=== PATIENT | male | born 1955 | race Caucasian/White ===

== ENCOUNTER → 2017-09-06 | Outpatient (REF) | payer OTHER | LOC: M SFHCPLAZ 17:30 | DX: L57.0 Actinic keratosis (principal) ==

== ENCOUNTER → 2017-11-15 | Outpatient (REF) | payer OTHER | LOC: M LAB REF 18:38 | DX: B07.9 Viral wart, unspecified (principal) ==

== ENCOUNTER → 2018-12-08 | Outpatient (REF) | payer OTHER | LOC: M SFHCPLAZ 14:43 | PROVIDERS: ATTEND Family Medicine | DX: R06.02 Shortness of breath (principal); Z13.220 Encounter for screening for lipoid disorders; Z13.1 Encounter for screening for diabetes mellitus; Z53.9 Procedure and treatment not carried out, unspecified reason ==

== ENCOUNTER → 2018-12-09 | Outpatient (CLI) | payer OTHER ==
--- NOTE | 2018-12-09 09:17 | REP ---
Chest two views HISTORY: Shortness of breath Comparison: 10/24/2015 The lungs are clear. The heart is normal in size. The pulmonary vasculature is normal in appearance. Degenerative change is present in the thoracic spine. Impression: No acute disease. Electronically Signed by Arden Crook MD 12/09/2018 09:08 A
[2018-12-09 09:33] LABS: BASO # 0.1 10^3/uL (0.0-0.2); BASO % 2.5 % (0.0-1.0); EOS # 0.2 10^3/uL (0.0-0.50); EOS % 4.2 % (0.0-3.0); HEMATOCRIT 36.7 % (42.0-52.0); HEMOGLOBIN 12.7 g/dl (13.5-17.5); LYMPH # 1.8 10^3/uL (1.5-4.5); LYMPH % 37.5 % (24.0-44.0); MEAN CORPUSCULAR HEMOGLOBIN 31.9 pg (27.0-33.0); MEAN CORPUSCULAR HGB CONC 34.6 g/dl (32.0-36.5); MEAN CORPUSCULAR VOLUME 92.2 fl (80.0-96.0); MONO # 0.5 10^3/uL (0.0-0.8); MONO % 11.3 % (0.0-5.0); NEUTROPHILS # 2.1 10^3/uL (1.8-7.7); NEUTROPHILS % 44.1 % (36.0-66.0); PLATELET COUNT, AUTOMATED 308 10^3/uL (150-450); RED BLOOD COUNT 3.98 10^6/uL (4.30-6.10); WHITE BLOOD COUNT 4.8 10^3/uL (4.0-10.0)
[2018-12-09 09:53] LABS: CALCIUM LEVEL 8.6 MG/DL (8.8-10.2); CHOLESTEROL RISK RATIO 4.514 (<5); CREATININE FOR GFR 1.4 MG/DL (0.70-1.30); GLOMERULAR FILTRATION RATE 54.3 (>49); PERCENT SATURATION 17.9 % (19.7-50.0); POTASSIUM SERUM 4.3 MEQ/L (3.5-5.1)
[2018-12-09 10:03] LABS: FOLATE 13.3 NG/ML
== END ==
LOC: M LAB 08:33
PROVIDERS: ATTEND Obstetrics & Gynecology
DX: Z13.220 Encounter for screening for lipoid disorders (principal); Z13.1 Encounter for screening for diabetes mellitus; R06.02 Shortness of breath

== ENCOUNTER → 2018-12-31 | Outpatient (CLI) | payer OTHER ==
--- NOTE | 2018-12-31 09:33 | PFTRPT ---
Height: 69.00 Inches Weight: 198.00 Lbs BSA: 2.06 Diagnosis: R06.02 DATE OF PROCEDURE: 12/31/2018 ORDERED BY: Dr. Kirsten Minor Spirometry: Pre and post bronchodilator study of excellent technical quality. Forced vital capacity reduced. FEV1 is in proportion. Obstructive index is, therefore, normal. Flow Volume Loop: Expiratory limb of the flow volume loop does suggest some degree of flow rate limitation. Favorable bronchodilator response is identified. Lung Volumes: Total lung capacity normal. Residual volume suggests air trapping. Diffusing Capacity: Diffusing capacity is reduced and does not correct for alveolar volume. Hemoglobin: No hemoglobin available for correction. Airway Mechanics: Airway resistance and conductance are normal. IMPRESSION: Reversible obstructive ventilatory defect with air trapping and diffusing capacity impairment. Please correlate clinically. MTDD
== END ==
LOC: M CARPUL 08:57
PROVIDERS: ATTEND Obstetrics & Gynecology
DX: J98.4 Other disorders of lung (principal); R06.02 Shortness of breath

== ENCOUNTER → 2019-03-17 | Outpatient (CLI) | payer MEDICARE, OTHER, SELFPAY ==
[2019-03-17 09:16] LABS: HEMATOCRIT 35.9 % (42.0-52.0); HEMOGLOBIN 12.3 g/dl (13.5-17.5); MEAN CORPUSCULAR HEMOGLOBIN 31.6 pg (27.0-33.0); MEAN CORPUSCULAR HGB CONC 34.3 g/dl (32.0-36.5); MEAN CORPUSCULAR VOLUME 92.3 fl (80.0-96.0); PLATELET COUNT, AUTOMATED 271 10^3/uL (150-450); RED BLOOD COUNT 3.89 10^6/uL (4.30-6.10); WHITE BLOOD COUNT 4.7 10^3/uL (4.0-10.0)
== END ==
LOC: M LAB 08:19
PROVIDERS: ATTEND Obstetrics & Gynecology
DX: D50.8 Other iron deficiency anemias (principal)

== ENCOUNTER → 2019-03-26 | Outpatient (CLI) | payer MEDICARE ==
--- NOTE | 2019-03-26 09:54 | REP ---
ULTRASOUND OF THE ABDOMINAL AORTA: Real-time sonographic evaluation of the abdominal aorta performed. There is no sonographic evidence of abdominal aortic aneurysm. Proximally, abdominal aorta measures 2.6 cm in maximum AP dimension, mid aspect 2.0 cm and distally 2.2 cm. Common iliac arteries are normal in caliber both measuring 9 mm in diameter. IMPRESSION: No sonographic evidence of abdominal aortic aneurysm. Electronically Signed by Julio La MD 03/26/2019 11:23 A
== END ==
LOC: M RAD 07:57
PROVIDERS: ATTEND Student in an Organized Health Care Education/Training Program
DX: Z13.6 Encounter for screening for cardiovascular disorders (principal)

== ENCOUNTER → 2019-04-16 | Outpatient (CLI) | payer MEDICARE ==
--- NOTE | 2019-04-16 09:45 | REP ---
Low-dose lung screening CT of the chest: The study is performed without IV contrast. The images are presented at lung windowing only. Comparison is the chest CT dated 01/24/2014. There is a minor apical pleural scarring, unchanged. There are no lung nodules or masses. There are no infiltrates or pleural effusions. The lung lopez are unchanged from the prior study. Impression: Category one low-dose lung screening CT of the chest. The probability of malignancy is less than 1%. Depending on risk factors consider annual follow-up low-dose lung screening CT of the chest. Electronically Signed by Julio Patel MD 04/16/2019 09:35 A
== END ==
LOC: M RAD 08:07
PROVIDERS: ATTEND Student in an Organized Health Care Education/Training Program
DX: Z12.2 Encounter for screening for malignant neoplasm of respiratory organs (principal); Z87.891 Personal history of nicotine dependence

== ENCOUNTER → 2019-05-18 | Outpatient (REF) | payer MEDICARE | LOC: M LAB REF 18:04 | PROVIDERS: ATTEND Family Medicine | DX: L57.0 Actinic keratosis (principal); D04.9 Carcinoma in situ of skin, unspecified ==

== ENCOUNTER → 2020-06-20 | Outpatient (CLI) | payer SELFPAY | LOC: M LABSMTC 09:38 | PROVIDERS: ATTEND Pediatrics | DX: Z20.828 Contact with and (suspected) exposure to other viral communicable diseases (principal) ==

== ENCOUNTER → 2020-08-11 | Outpatient (REF) | payer MEDICARE | LOC: M LAB REF 13:40 | PROVIDERS: ATTEND Family Medicine | DX: D23.5 Other benign neoplasm of skin of trunk (principal) ==

== ENCOUNTER → 2020-08-12 | Outpatient (CLI) | payer MEDICARE ==
--- NOTE | 2020-08-12 13:39 | REP ---
INDICATION: LUNG SCREENING. COMPARISON: 04/16/2019. TECHNIQUE: Low dose screening CT chest performed without the use of intravenous contrast. FINDINGS: Lungs: Clear, no infiltrate or nodule. There are mild stable scattered interstitial fibrotic changes bilaterally. Heart: Not enlarged. Thoracic aorta: No aneurysm. Visualized osseous structures: There are degenerative changes of the thoracic spine. IMPRESSION: Category 1 negative low dose noncontrast CT chest. Follow-up exam recommended in 1 year. <Electronically signed by Julio La > 08/12/20 [id number]
== END ==
LOC: M RAD 11:13
PROVIDERS: ATTEND Student in an Organized Health Care Education/Training Program
DX: Z12.2 Encounter for screening for malignant neoplasm of respiratory organs (principal); Z87.891 Personal history of nicotine dependence; M51.34 Other intervertebral disc degeneration, thoracic region; J84.10 Pulmonary fibrosis, unspecified

== ENCOUNTER → 2020-10-11 | Outpatient (CLI) | payer MEDICARE ==
[~2020-10-11] MED LIST: ISOVUE-300 61% 50ML VIAL As Ordered ONE; ISOVUE-M 300 61% 15ML VIAL As Ordered ONE; PROHANCE 279.3MG/ML 5ML VIAL As Ordered ONE
--- NOTE | 2020-10-11 12:16 | REP ---
INDICATION: IMPINGEMENT SYNDROME OF LEFT SHOULDER. COMPARISON: Radiographs 02/29/2020. TECHNIQUE: Following arthrogram procedure axial CT images are performed with sagittal and coronal oblique reconstruction images. FINDINGS: There is a full-thickness partial tear of the anterior aspect of the supraspinatus tendon, with injected contrast extending into the subacromial/subdeltoid bursae. No other definite rotator cuff tendon tear is seen. There are moderate hypertrophic degenerative changes of the acromioclavicular joint with a type 2 acromion. Biceps tendon is contiguous within the bicipital groove. There is no evidence of Hill-Sachs deformity. There is no definite tear at the biceps labral complex. There is no definite labral tear. There is no fracture or dislocation. There is mild chondromalacia at the glenohumeral joint with no focal defect. There is a 1.5 cm hypodense nodule in the left lobe of the thyroid. IMPRESSION: Full-thickness partial tear anterior supraspinatus tendon. Moderate hypertrophic degenerative changes acromioclavicular joint with a type 2 acromion. No evidence of labral tear. Mild chondromalacia glenohumeral joint. Nodule left lobe of thyroid 1.5 cm in diameter. Recommend thyroid ultrasound to further evaluate. <Electronically signed by Julio La > 10/11/20 [id number]
--- NOTE | 2020-10-11 18:13 | REP ---
INDICATION: IMPINGEMENT SYNDROME OF LEFT SHOULDER COMPARISON: None. TECHNIQUE: The procedure was performed under the direct supervision of Dr. La. The benefits and risks including but not limited to pain, infection, bleeding and anaphylaxis were explained to the patient and informed consent was obtained. The left glenohumeral joint space was localized using fluoroscopic guidance. The skin was prepped and draped in a sterile fashion. 1% lidocaine was used as a local anesthetic. Using fluoroscopic guidance a 22 gauge spinal needle was inserted and advanced into the joint. 11 cc of Isovue-[id number] was injected. The needle was removed and the patient was taken to CT scan for postprocedural imaging. The patient tolerated the procedure well and there were no immediate complications. Less than 6 seconds of fluoro time was utilized for this procedure. FINDINGS: None IMPRESSION: Fluoro guidance for left shoulder CT arthrogram injection. <Electronically signed by Norman Ulloa > 10/11/20 [id number] <Electronically signed by Julio La > 10/11/20 [id number]
== END ==
LOC: M RADPRO 08:42
PROVIDERS: ATTEND Orthopaedic Surgery
DX: M75.112 Incomplete rotator cuff tear or rupture of left shoulder, not specified as traumatic (principal); M94.212 Chondromalacia, left shoulder; E04.1 Nontoxic single thyroid nodule; M75.42 Impingement syndrome of left shoulder
CPT/HCPCS: 23350; 73201; 77002; Q9967

== ENCOUNTER → 2020-11-21 | Outpatient (REF) | payer MEDICARE ==
[2020-11-21 13:16] LABS: HEMOGLOBIN 12.6 g/dl (13.5-17.5); MEAN CORPUSCULAR HEMOGLOBIN 31.2 pg (27.0-33.0); MEAN CORPUSCULAR HGB CONC 34.1 g/dl (32.0-36.5); MEAN CORPUSCULAR VOLUME 91.6 fl (80.0-96.0); PLATELET COUNT, AUTOMATED 294 10^3/uL (150-450); RED BLOOD COUNT 4.04 10^6/uL (4.30-6.10); WHITE BLOOD COUNT 5.1 10^3/uL (4.0-10.0)
[2020-11-21 14:48] LABS: ALBUMIN 3.7 GM/DL (3.2-5.2); BILIRUBIN,TOTAL 0.5 MG/DL (0.2-1.0); CALCIUM LEVEL 8.7 MG/DL (8.8-10.2); CREATININE FOR GFR 1.28 MG/DL (0.70-1.30); FREE T4 0.85 NG/DL (0.76-1.46); GLOMERULAR FILTRATION RATE 59.9 (>49); POTASSIUM SERUM 4.4 MEQ/L (3.5-5.1); THYROID STIMULATING HORMONE 3.41 uIU/ML (0.358-3.740); TOTAL PROTEIN 6.9 GM/DL (6.4-8.2)
[2020-11-21 18:35] LABS: HEMOGLOBIN A1c 5.5 %
[2020-11-22 18:11] LABS: PSA TOTAL 0.9 ng/mL (0.0-4.0)
== END ==
LOC: M SFHCPLAZ 09:34
PROVIDERS: ATTEND Family Medicine
DX: E04.1 Nontoxic single thyroid nodule (principal); Z13.1 Encounter for screening for diabetes mellitus; Z12.5 Encounter for screening for malignant neoplasm of prostate; Z12.2 Encounter for screening for malignant neoplasm of respiratory organs; R97.20 Elevated prostate specific antigen [PSA]

== ENCOUNTER → 2020-12-05 | Outpatient (REF) | payer MEDICARE | LOC: M LAB REF 17:22 | PROVIDERS: ATTEND Internal Medicine Endocrinology, Diabetes & Metabolism | DX: E04.1 Nontoxic single thyroid nodule (principal) ==

== ENCOUNTER → 2021-01-31 | Outpatient (CLI) | payer MEDICARE ==
--- NOTE | 2021-01-31 10:34 | PFTRPT ---
Height: 69.00 Inches Weight: 205.00 Lbs BSA: 2.09 Diagnosis: J43.1 DATE: 01/31/2021 ORDERED BY: LIZBET Benton Pre and post bronchodilator studies have excellent technical quality. Forced vital capacity is mildly reduced. FEV1 is in proportion. Obstructive index is therefore normal. Expiratory limit of the flow-volume loop does suggest some nonspecific limitation. Slow vital capacity generally in proportion. Diffusing capacity although reduced is appropriate for alveolar volume. Hemoglobin is acceptable at 15.1. Airway resistance and conductance are normal. IMPRESSION: Nonspecific flow rate limitation without significant bronchodilator response. Mild reduction in the absolute diffusing capacity. Please correlate clinically. MTDD
== END ==
LOC: M CARPUL 09:46
PROVIDERS: ATTEND Physician Assistant
DX: J43.1 Panlobular emphysema (principal)

== ENCOUNTER → 2021-03-09 | Outpatient (CLI) | payer MEDICARE ==
[~2021-03-09] MED LIST changes: -ISOVUE-300 61% 50ML VIAL As Ordered ONE; -ISOVUE-M 300 61% 15ML VIAL As Ordered ONE; +METHACHOLINE KIT (J7674) INH ONE; -PROHANCE 279.3MG/ML 5ML VIAL As Ordered ONE
== END ==
LOC: M CARPUL 07:56
PROVIDERS: ATTEND Physician Assistant
DX: R06.00 Dyspnea, unspecified (principal)

== ENCOUNTER 2021-07-07 15:05 | Emergency (ER) | payer MEDICARE ==
[~2021-07-07] VITALS: Ht 175.3 cm; Wt 98.3 kg
[2021-07-07 15:05] VITALS: BP 150/77
[2021-07-07] MEDS ORDERED: ALKA SELTZER COLD (15:11)
[2021-07-07] MEDS ORDERED: AMOX500C PO (16:18)
== END 2021-07-07 16:41 | disposition home or self-care (01) ==
LOC: M ED 15:05
DX: H66.91 Otitis media, unspecified, right ear (principal); J44.9 Chronic obstructive pulmonary disease, unspecified; Z87.891 Personal history of nicotine dependence

== ENCOUNTER → 2021-08-08 | Outpatient (REF) | payer MEDICARE ==
[~2021-08-08] MED LIST changes: +ALKA SELTZER COLD; +AMOX500C PO; -METHACHOLINE KIT (J7674) INH ONE
== END ==
LOC: M SFHCPLAZ 09:04
PROVIDERS: ATTEND Family Medicine
DX: E04.1 Nontoxic single thyroid nodule (principal); Z13.220 Encounter for screening for lipoid disorders; Z12.5 Encounter for screening for malignant neoplasm of prostate; Z13.1 Encounter for screening for diabetes mellitus

== ENCOUNTER → 2021-09-25 | Outpatient (CLI) | payer MEDICARE ==
[2021-09-25 14:06] LABS: CHOLESTEROL RISK RATIO 4.256 (<5); FREE T4 0.88 NG/DL (0.76-1.46); THYROID STIMULATING HORMONE 3.26 uIU/ML (0.358-3.740)
[2021-09-25 14:14] LABS: HEMOGLOBIN A1c 5.5 %
== END ==
LOC: M PLALAB 09:43
PROVIDERS: ATTEND Family Medicine
DX: Z12.5 Encounter for screening for malignant neoplasm of prostate (principal); Z13.220 Encounter for screening for lipoid disorders; E04.1 Nontoxic single thyroid nodule; Z13.1 Encounter for screening for diabetes mellitus; Z79.899 Other long term (current) drug therapy
CPT/HCPCS: 36415; 80061; 83036; 84439; 84443; G0103

== ENCOUNTER → 2022-11-14 | Outpatient (REF) | payer MEDICARE | LOC: M SFHCPLAZ 12:45 | PROVIDERS: ATTEND Physician Assistant | DX: R52 Pain, unspecified (principal); J02.9 Acute pharyngitis, unspecified ==

== ENCOUNTER → 2023-02-18 | Outpatient (CLI) | payer MEDICARE ==
[2023-02-18 11:16] LABS: CALCIUM LEVEL 8.5 MG/DL (8.3-10.6); CHOLESTEROL RISK RATIO 3.34 (<5); CREATININE FOR GFR 1.4 MG/DL (0.70-1.30); GLOMERULAR FILTRATION RATE 53.5 (>49); HDL CHOLESTEROL 42.8 MG/DL (>40); LDL CHOLESTEROL 89.2 MG/DL (<100); NON-HDL-C 100.2 MG/DL; POTASSIUM SERUM 4.5 MMOL/L (3.5-5.1)
[2023-02-18 11:43] LABS: HEMOGLOBIN A1c 5.5 % (4.0-6.0)
== END ==
LOC: M PLALAB 08:28
PROVIDERS: ATTEND Student in an Organized Health Care Education/Training Program
DX: Z13.220 Encounter for screening for lipoid disorders (principal); Z13.1 Encounter for screening for diabetes mellitus; Z79.899 Other long term (current) drug therapy

== ENCOUNTER → 2023-09-17 | Outpatient (CLI) | payer MEDICARE ==
[2023-09-17 15:48] LABS: CALCIUM LEVEL 8.6 MG/DL (8.3-10.6); CREATININE FOR GFR 2.07 MG/DL (0.70-1.30); GLOMERULAR FILTRATION RATE 34.1 (>49); POTASSIUM SERUM 4.6 MMOL/L (3.5-5.1)
== END ==
LOC: M PLALAB 12:48
PROVIDERS: ATTEND Student in an Organized Health Care Education/Training Program
DX: N18.31 Chronic kidney disease, stage 3a (principal)

== ENCOUNTER → 2023-09-20 | Outpatient (REF) | payer MEDICARE ==
[2023-09-20 13:46] LABS: APPEARANCE, URINE HAZY (CLEAR); BACTERIA, URINE AUTO NEGATIVE (NEGATIVE); BILIRUBIN, URINE AUTO NEGATIVE (NEGATIVE); BLOOD, URINE BLOOD NEGATIVE (NEGATIVE); COLOR, URINE YELLOW (YELLOW); GLUCOSE, URINE (UA) AUTO NEGATIVE (NEGATIVE); KETONE, URINE AUTO NEGATIVE (NEGATIVE); LEUKOCYTE ESTERASE, URINE AUTO NEGATIVE (NEGATIVE); MUCUS, URINE SMALL (NEGATIVE); NITRITE, URINE AUTO NEGATIVE (NEGATIVE); PROTEIN, URINE AUTO NEGATIVE (NEGATIVE); RBC, URINE AUTO 0 /HPF (0-3); SPECIFIC GRAVITY URINE AUTO 1.017 (1.002-1.035); SQUAMOUS EPITHELIAL CELL UR AU 0 /HPF (0-6); UROBILINOGEN, URINE AUTO 0.2 mg/dL (0.0-2.0); WBC, URINE AUTO 1 /HPF (0-3)
== END ==
LOC: M SFHCPLAZ 12:53
PROVIDERS: ATTEND Student in an Organized Health Care Education/Training Program
DX: N17.9 Acute kidney failure, unspecified (principal); N18.31 Chronic kidney disease, stage 3a; Z79.899 Other long term (current) drug therapy

== ENCOUNTER → 2023-10-02 | Outpatient (CLI) | payer MEDICARE ==
[2023-10-02 16:16] LABS: BLOOD UREA NITROGEN 22 MG/DL (9-23); CALCIUM LEVEL 7.9 MG/DL (8.3-10.6); CARBON DIOXIDE LEVEL 27 MMOL/L (20-31); CHLORIDE LEVEL 108 MMOL/L (98-107); CREATININE FOR GFR 1.26 MG/DL (0.70-1.30); GLOMERULAR FILTRATION RATE > 60.0 (>49); GLUCOSE, FASTING 113 MG/DL (74-106); POTASSIUM SERUM 4.2 MMOL/L (3.5-5.1); SODIUM LEVEL 138 MMOL/L (136-145)
== END ==
LOC: M PLALAB 13:38
PROVIDERS: ATTEND Student in an Organized Health Care Education/Training Program
DX: N18.31 Chronic kidney disease, stage 3a (principal)

== ENCOUNTER → 2023-10-02 | Outpatient (REF) | payer MEDICARE | LOC: M SFHCPLAZ 12:52 | PROVIDERS: ATTEND Student in an Organized Health Care Education/Training Program | DX: N18.31 Chronic kidney disease, stage 3a (principal) ==

== ENCOUNTER → 2023-10-08 | Outpatient (CLI) | payer MEDICARE | LOC: M RAD 14:34 | PROVIDERS: ATTEND Internal Medicine Hematology | DX: N17.9 Acute kidney failure, unspecified (principal); N40.0 Benign prostatic hyperplasia without lower urinary tract symptoms ==

== ENCOUNTER → 2023-10-30 | Outpatient (CLI) | payer MEDICARE | LOC: M RAD 06:37 | PROVIDERS: ATTEND Student in an Organized Health Care Education/Training Program | DX: Z12.2 Encounter for screening for malignant neoplasm of respiratory organs (principal); F17.211 Nicotine dependence, cigarettes, in remission ==

== ENCOUNTER → 2023-11-06 | Outpatient (REF) | payer MEDICARE | LOC: M SFHCPLAZ 09:41 | PROVIDERS: ATTEND Student in an Organized Health Care Education/Training Program | DX: J02.0 Streptococcal pharyngitis (principal) ==

== ENCOUNTER → 2023-11-06 | Outpatient (CLI) | payer MEDICARE ==
[2023-11-06 13:44] LABS: BASO # 0.1 10^3/uL (0.0-0.2); BASO % 1.3 % (0.0-1.0); EOS % 0.2 % (0.0-3.0); HEMATOCRIT 35.9 % (42.0-52.0); HEMOGLOBIN 11.9 g/dl (13.5-17.5); LYMPH # 0.9 10^3/uL (1.5-5.0); LYMPH % 16.3 % (24.0-44.0); MEAN CORPUSCULAR HEMOGLOBIN 30.9 pg (27.0-33.0); MEAN CORPUSCULAR HGB CONC 33.1 g/dl (32.0-36.5); MEAN CORPUSCULAR VOLUME 93.2 fl (80.0-96.0); MONO # 0.9 10^3/uL (0.0-0.8); MONO % 16.3 % (2.0-8.0); NEUTROPHILS # 3.4 10^3/uL (1.5-8.5); NEUTROPHILS % 65.3 % (36.0-66.0); PLATELET COUNT, AUTOMATED 235 10^3/uL (150-450); RED BLOOD COUNT 3.85 10^6/uL (4.30-6.10); WHITE BLOOD COUNT 5.3 10^3/uL (4.0-10.0)
[2023-11-06 14:11] LABS: TOTAL 25(OH) VITAMIN D 31.4 NG/ML (20.0-100.0)
[2023-11-06 14:12] LABS: ALBUMIN 3.4 G/DL (3.2-5.2); ALKALINE PHOSPHATASE 86 U/L (46-116); ALT/SGPT 40 U/L (7.0-40); AST/SGOT 32 U/L (<34); BILIRUBIN,TOTAL 0.7 MG/DL (0.3-1.2); BLOOD UREA NITROGEN 26 MG/DL (9-23); CALCIUM LEVEL 8.4 MG/DL (8.3-10.6); CARBON DIOXIDE LEVEL 28 MMOL/L (20-31); CHLORIDE LEVEL 105 MMOL/L (98-107); CREATININE FOR GFR 1.55 MG/DL (0.70-1.30); GLOMERULAR FILTRATION RATE 47.6 (>49); GLUCOSE, FASTING 106 MG/DL (74-106); POTASSIUM SERUM 4.2 MMOL/L (3.5-5.1); SODIUM LEVEL 139 MMOL/L (136-145)
[2023-11-06 14:13] LABS: FOLATE > 24.0 NG/ML (>5.4); VITAMIN B12 LEVEL 416 PG/ML (211-911)
== END ==
LOC: M PLALAB 09:35
PROVIDERS: ATTEND Student in an Organized Health Care Education/Training Program
DX: J06.9 Acute upper respiratory infection, unspecified (principal); R53.82 Chronic fatigue, unspecified; N18.31 Chronic kidney disease, stage 3a

== ENCOUNTER → 2023-12-18 | Outpatient (CLI) | payer MEDICARE ==
[2023-12-18 14:39] LABS: PERCENT SATURATION 17.5 % (19.7-50.0)
[2023-12-18 14:40] LABS: ALBUMIN 3.5 G/DL (3.2-5.2); BILIRUBIN,TOTAL 0.5 MG/DL (0.3-1.2); CALCIUM LEVEL 8.9 MG/DL (8.3-10.6); CREATININE FOR GFR 1.29 MG/DL (0.70-1.30); GLOMERULAR FILTRATION RATE 58.8 (>49); TOTAL PROTEIN 6.5 G/DL (5.7-8.2)
== END ==
LOC: M PLALAB 08:06
PROVIDERS: ATTEND Student in an Organized Health Care Education/Training Program
DX: D64.9 Anemia, unspecified (principal); M19.041 Primary osteoarthritis, right hand; M19.042 Primary osteoarthritis, left hand; M18.31 Unilateral post-traumatic osteoarthritis of first carpometacarpal joint, right hand; Z12.11 Encounter for screening for malignant neoplasm of colon

== ENCOUNTER → 2024-01-21 | Outpatient (REF) | payer MEDICARE | LOC: M SFHCPLAZ 12:50 | PROVIDERS: ATTEND Student in an Organized Health Care Education/Training Program | DX: J06.9 Acute upper respiratory infection, unspecified (principal) ==

== ENCOUNTER → 2024-03-02 | Outpatient (CLI) | payer MEDICARE ==
[2024-03-02 10:55] LABS: URIC ACID 4.3 MG/DL (3.7-9.2)
[2024-03-02 10:57] LABS: C REACTIVE PROTEIN QUANTITATIV < 0.40 MG/DL (<1.0)
[2024-03-02 10:59] LABS: CHOLESTEROL LEVEL 146 MG/DL (<200); CHOLESTEROL RISK RATIO 3.65 (<5); LDL CHOLESTEROL 92.4 MG/DL (<100); PSA SCREENING 0.98 NG/ML (< 4.00); TRIGLYCERIDES LEVEL 68 MG/DL (<150)
[2024-03-02 11:01] LABS: FREE T4 0.89 NG/DL (0.89-1.76)
[2024-03-02 11:04] LABS: HEMOGLOBIN A1c 5.3 % (4.0-6.0)
== END ==
LOC: M PLALAB 07:53
PROVIDERS: ATTEND Student in an Organized Health Care Education/Training Program
DX: E78.5 Hyperlipidemia, unspecified (principal); Z12.5 Encounter for screening for malignant neoplasm of prostate; Z13.1 Encounter for screening for diabetes mellitus; R53.82 Chronic fatigue, unspecified; M19.041 Primary osteoarthritis, right hand
CPT/HCPCS: 36415; 80061; 83036; 84439; 84443; 84550; 85652; 86140; G0103

== ENCOUNTER → 2024-03-30 | Outpatient (CLI) | payer MEDICARE ==
[2024-03-30 13:37] LABS: CALCIUM LEVEL 9.1 MG/DL (8.3-10.6); CREATININE FOR GFR 1.35 MG/DL (0.70-1.30); GLOMERULAR FILTRATION RATE 55.6 (>42); POTASSIUM SERUM 4.4 MMOL/L (3.5-5.1)
[2024-03-30 13:40] LABS: BASO # 0.1 10^3/uL (0.0-0.2); BASO % 2.1 % (0.0-1.0); EOS # 0.2 10^3/uL (0.0-0.5); EOS % 3.3 % (0.0-3.0); HEMATOCRIT 37.7 % (42.0-52.0); HEMOGLOBIN 12.5 g/dl (13.5-17.5); LYMPH # 1.8 10^3/uL (1.5-5.0); LYMPH % 28.4 % (24.0-44.0); MEAN CORPUSCULAR HEMOGLOBIN 30.9 pg (27.0-33.0); MEAN CORPUSCULAR HGB CONC 33.2 g/dl (32.0-36.5); MEAN CORPUSCULAR VOLUME 93.1 fl (80.0-96.0); MONO # 0.7 10^3/uL (0.0-0.8); MONO % 11.2 % (2.0-8.0); NEUTROPHILS # 3.4 10^3/uL (1.5-8.5); NEUTROPHILS % 54.4 % (36.0-66.0); PLATELET COUNT, AUTOMATED 306 10^3/uL (150-450); RED BLOOD COUNT 4.05 10^6/uL (4.30-6.10); WHITE BLOOD COUNT 6.3 10^3/uL (4.0-10.0)
[2024-03-30 13:53] LABS: HEMOGLOBIN A1c 5.4 % (4.0-6.0)
== END ==
LOC: M PLALAB 09:14
PROVIDERS: ATTEND Student in an Organized Health Care Education/Training Program
DX: Z00.00 Encounter for general adult medical examination without abnormal findings (principal); D64.9 Anemia, unspecified; N18.31 Chronic kidney disease, stage 3a; Z79.899 Other long term (current) drug therapy

== ENCOUNTER → 2025-01-26 | Outpatient (REF) | payer MEDICARE | LOC: M SFHCPLAZ 17:27 | PROVIDERS: ATTEND Student in an Organized Health Care Education/Training Program | DX: J06.9 Acute upper respiratory infection, unspecified (principal) ==

== ENCOUNTER → 2025-06-04 | Outpatient (REF) | payer MEDICARE | LOC: M SFHCLERA 17:07 | PROVIDERS: ATTEND Student in an Organized Health Care Education/Training Program | DX: R09.89 Other specified symptoms and signs involving the circulatory and respiratory systems (principal) ==

== ENCOUNTER → 2025-06-10 | Outpatient (REF) | payer MEDICARE | LOC: M SFHCPLAZ 10:22 | PROVIDERS: ATTEND Physician Assistant | DX: J32.9 Chronic sinusitis, unspecified (principal); J06.9 Acute upper respiratory infection, unspecified ==

== ENCOUNTER → 2025-06-10 | Outpatient (CLI) | payer MEDICARE ==
[2025-06-10 10:25] LABS: PLATELET COUNT, AUTOMATED 318 10^3/uL (150-450)
[2025-06-10 10:34] LABS: VITAMIN B12 LEVEL 415.0 PG/ML (211-911)
== END ==
LOC: M PLAIMG 08:10
DX: J06.9 Acute upper respiratory infection, unspecified (principal); D50.9 Iron deficiency anemia, unspecified; E53.8 Deficiency of other specified B group vitamins; J32.8 Other chronic sinusitis

== ENCOUNTER → 2025-07-05 | Outpatient (CLI) | payer MEDICARE ==
[2025-07-05 10:43] LABS: ALT/SGPT 39.0 U/L (7.0-40); AST/SGOT 30.0 U/L (<34); CALCIUM LEVEL 9.3 MG/DL (8.3-10.6); CARBON DIOXIDE LEVEL 29.0 MMOL/L (20-31); CHLORIDE LEVEL 103.0 MMOL/L (98-107); CREATININE FOR GFR 1.45 MG/DL (0.70-1.30); GLOMERULAR FILTRATION RATE 51.5 (>42); POTASSIUM SERUM 4.6 MMOL/L (3.5-5.1); SODIUM LEVEL 139.0 MMOL/L (136-145)
== END ==
LOC: M PLALAB 08:30
PROVIDERS: ATTEND Student in an Organized Health Care Education/Training Program
DX: N18.31 Chronic kidney disease, stage 3a (principal)